=== PATIENT | female | born 1965 | race Caucasian/White ===

== ENCOUNTER 2022-03-26 08:25 | Emergency (ER) | payer OTHER ==
[~2022-03-26] VITALS: Ht 170.2 cm; Wt 149.7 kg
[~2022-03-26 08:25] MED LIST: ADVIL200 M1 PO; BENTYL10 MG PO; FLAGYL250 MG PO
[2022-03-26] MEDS ORDERED: VENTOLIN HFA18 GM INH ×2 (08:43→14:05)
[2022-03-26] MEDS ORDERED: ALBUTEROL2.5 MG/3 M INH (08:44)
[2022-03-26] MEDS ORDERED: PREDNISONE20 MG PO (14:05)
[2022-03-26] MEDS ORDERED: DOXYCYCLINE HY100 MG PO (14:05)
--- NOTE | 2022-03-30 15:16 | EKG ---
[facility] [address] [facility] [place] [address] Signed Normal sinus rhythm Normal ECG No previous ECGs available Confirmed by Zayra Lima MD () on 03/30/2022 3:16:42 PM Electronically Signed By: ZAYRA LIMA MD 03/30/22 1516 PATIENT NAME: NATALEE LYON Beatriz Electrocardiogram DATE OF : 69 PHYSICIAN: ZAYRA LIMA MD REPORT #: [id number] REPORT IS CONFIDENTIAL AND NOT TO BE RELEASED WITHOUT AUTHORIZATION
== END 2022-03-26 14:24 | disposition home or self-care (01) ==
LOC: ED 08:25
DX: J40 Bronchitis, not specified as acute or chronic (principal); Z20.822 Contact with and (suspected) exposure to COVID-19; J44.9 Chronic obstructive pulmonary disease, unspecified; F17.200 Nicotine dependence, unspecified, uncomplicated
CPT/HCPCS: 36415; 71045; 80048; 83880; 84484; 85025; 85379; 87502; 93005; 93010; 94640; 96374; 96375; 99285-25; 99406; C9803; J1100; J1885; U0003